=== PATIENT | male | born 1990 | race African-American/Black ===

== ENCOUNTER 2018-03-15 18:29 | Emergency (ER) | payer MEDICAID ==
[~2018-03-15] VITALS: Ht 185.4 cm; Wt 101.0 kg
[2018-03-15 18:54] VITALS: BP 101/58
== END 2018-03-16 00:35 | disposition left against medical advice (07) ==
LOC: ER 18:29
DX: Z53.21 Procedure and treatment not carried out due to patient leaving prior to being seen by health care provider (principal)